=== PATIENT | female | born 1985 | race Asian ===

== ENCOUNTER → 2018-09-11 | Outpatient (REF) | payer OTHER ==
[2018-09-11 21:15] LABS: CHLAMYDIA DNA AMPLIFICATION NEGATIVE (NEGATIVE); GC DNA AMPLIFICATION NEGATIVE (NEGATIVE)
== END ==
LOC: M SFHCLERA 13:14
DX: N89.8 Other specified noninflammatory disorders of vagina (principal); R30.0 Dysuria